=== PATIENT | male | born 1955 | race Two or more races ===

== ENCOUNTER 2020-10-30 11:05 | Outpatient (CLI) | payer OTHER ==
[2020-10-31] MEDS ORDERED: JANUMET XR 50-1 EAC1 PO (13:47)
[2020-10-31] MEDS ORDERED: TOPROL XL50 M1 PO (13:47)
[2020-10-31] MEDS ORDERED: LOTENSIN40 MG PO (13:47)
[2020-10-31] MEDS ORDERED: NORVASC10 MG PO (13:47)
[2020-10-31] MEDS ORDERED: FENOFIBRATE150 MG (13:48)
[2020-10-31] MEDS ORDERED: SIMVASTATIN5 MG PO (13:48)
== END 2020-10-30 15:00 | disposition home or self-care (01) ==
LOC: EKG 11:05
PROVIDERS: ATTEND Urology
DX: N20.0 Calculus of kidney (principal); E11.9 Type 2 diabetes mellitus without complications

== ENCOUNTER 2020-11-07 11:30 | Inpatient (IN) | payer OTHER ==
[~2020-11-07] VITALS: Ht 165.1 cm; Wt 78.9 kg
[~2020-11-07 11:30] MED LIST: FENOFIBRATE150 MG; JANUMET XR 50-1 EAC1 PO; LOTENSIN40 MG PO; NORVASC10 MG PO; SIMVASTATIN5 MG PO; TOPROL XL50 M1 PO
[2020-11-12] MEDS ORDERED: TAMSULOSIN HCL0.4 MG (10:57)
[2020-11-12] MEDS ORDERED: FENOFIBRIC ACI135 MG (10:58)
== END 2020-11-14 11:04 | disposition home or self-care (01) | DRG 670 ==
LOC: O/R 11-12 10:04 → SURH 11-12 10:04 → O/R 11-12 20:44 → SURH 11-12 21:38
PROVIDERS: ADMIT Urology; ATTEND Urology
PROC: 0TC38ZZ Extirpation of Matter from Right Kidney Pelvis, Via Natural or Artificial Opening Endoscopic (ICD-10-PCS; principal; 2020-11-12 11:30)
DX: N20.0 Calculus of kidney (principal); E11.9 Type 2 diabetes mellitus without complications; I10 Essential (primary) hypertension; Z79.84 Long term (current) use of oral hypoglycemic drugs

== ENCOUNTER 2020-11-21 07:57 | Outpatient (CLI) | payer OTHER ==
[~2020-11-21 07:57] MED LIST changes: +FENOFIBRIC ACI135 MG; +TAMSULOSIN HCL0.4 MG
== END 2020-11-21 08:11 | disposition home or self-care (01) ==
LOC: RAD 07:57
PROVIDERS: ATTEND Urology
DX: N20.0 Calculus of kidney (principal)

== ENCOUNTER → 2023-08-25 12:09 | Outpatient (CLI) | payer OTHER ==
[~2023-08-25] VITALS: Ht 165.1 cm; Wt 74.4 kg
[~2023-08-25 12:09] MED LIST changes: +TRIJARDY XR 121 EACH PO
[2023-08-25 13:35] LABS: HEMATOCRIT 47.8 % (39.0-48.0); HEMOGLOBIN 16.6 g/dL (13-16.00); MEAN CELL VOLUME 84.1 fL (80.0-100.00); MEAN CORPUSCULAR HEMOGLOBIN 29.1 pg (27.00-32.0); MEAN CORPUSCULAR HGB CONC 34.6 g/dl (32.0-36.0); PLATELET COUNT 252 K/uL (150-450); RED BLOOD COUNT 5.69 M/uL (4.00-6.00); RED CELL DISTRIBUTION WIDTH 15.1 % (11.5-14.5)
[2023-08-25 13:57] LABS: CALCIUM 9.6 mg/dL (8.5-10.1); CREATININE SERUM 0.7 mg/dL (0.70-1.30); GFR 112.15; POTASSIUM 4.37 mEq/L (3.5-5.1)
[2023-08-25 13:58] LABS: INR 0.98; PARTIAL THROMBOPLASTIN TIME 28.2 SECONDS (22.0-34.0); PROTHROMBIN TIME 10.3 SECONDS (9.0-11.5)
== END | disposition home or self-care (01) ==
LOC: LAB 12:09
PROVIDERS: ATTEND Urology
DX: E11.9 Type 2 diabetes mellitus without complications (principal)